=== PATIENT | male | born 1985 | race Caucasian/White ===

== ENCOUNTER 2021-09-24 18:17 | Emergency (ER) | payer OTHER, SELFPAY ==
[2021-09-24 18:19] VITALS: BP 138/93; PULSE 74; RESP 18; TEMP 36.2; O2SAT 100
--- NOTE | 2021-09-24 20:18 | ED.GENADULT ---
HPI - General Adult General Chief complaint: Wound/Laceration Stated complaint: lac Time Seen by Provider: 09/24/21 20:03 Source: patient Mode of arrival: ambulatory Limitations: no limitations History of Present Illness HPI narrative: Patient presents for evaluation of laceration to left wrist. He states he was working with a trailer when the gate of the trailer broke. He attempted to worm picker a piece of metal and in the process of doing that sustained the wound. He states pain is mild in severity, without descriptive quality. No loss of range of motion. He is right-hand dominant. Date of last tetanus unknown. He is diabetic but states blood sugars hae been running 90-130's. He is compliant with his metformin. He indicates bleeding is controlled. Related Data Allergies Allergy/AdvReac Type Severity Reaction Status Date / Time No Known Allergies Allergy Unknown Verified 09/24/21 20:40 Review of Systems Review of Systems: CONSTITUTIONAL: Denies fever, chills, or sweats. EYES: Denies visual changes, redness, or discharge. ENT: Denies rhinorrhea, congestion, sore throat, or otalgia. CARDIOVASCULAR: Denies chest pain, palpitations, or edema. RESPIRATORY: Denies cough or dyspnea. GASTROINTESTINAL: Denies abdominal pain, nausea, vomiting, or diarrhea. GENITOURINARY: Denies dysuria or hematuria. SKIN: Reports laceration to left wrist. Denies rash or itching. MUSCULOSKELETAL: Reports pain at site of left wrist laceration. Denies back pain or joint pain NEUROLOGIC: Denies headache, numbness, dizziness, or weakness. PSYCHIATRIC: Denies anxiety or depression. [facility] Past Medical History Medical History (Updated 09/24/21 @ 21:20 by ROMULO Martin, ) Diabetes Hypertension Testicular cancer Surgical History Surgical History History of orchiectomy Family History Family History Mother Pulmonary disease Father Pulmonary disease Social History Social History Smoking status: Never smoker Alcohol intake: current Alcohol use details: Occasional Substance use: current Substance use type: marijuana Living arrangements: with family Gender identity (if verbalized by the patient): Male Sexual Orientation (if Verbalized by the Patient): Straight or Heterosexual Spiritual care concerns: No Exam Narrative: GENERAL: Well-appearing, well-nourished, and in no acute distress. HEAD: Normocephalic, atraumatic. EYES: PERRLA and EOMI. ENT: Nares clear, no rhinorrhea or epistaxis. Mucous membranes moist. Oropharynx without tonsillar hypertrophy exudate or other lesions. Bilateral TMs pearly abdi nonbulging NECK: Supple. No adenopathy or masses. No carotid bruits or JVD CHEST: Clear to auscultation. No respiratory distress. No wheezes rales or rhonchi HEART: Regular rate and rhythm. No murmur heard. Normal peripheral pulses. ABDOMEN: Soft, nontender, nondistended, normal active bowel sounds. EXTREMITIES: Normal range of motion. No edema. SKIN: Approximately 3 cm linear laceration to the left wrist. This is covered in dry gauze and Kerlix which were removed for evaluation. There is small amount of sanguinous drainage noted on the dressing and a small amount of active bleeding from the laceration site . Skin is warm, dry, no rash. NEURO: No focal deficits. Alert and oriented x3. PSYCH: Normal mood and affect. Course Course Emergency Course: This is a 36-year-old male with history of testicular cancer, diabetes, hypertension that presented with a laceration to the left wrist. He was updated on his tetanus. Laceration was approximated with 5 sutures. I offered to check imaging, which patient declined. I think this is reasonable due to level clinical suspicion for retained foreign body. patient tolerated well. Advised on woun
[2021-09-24] MEDS: TETANUS,DIPHTHERIA,AC PERTUSSIS ADULT (0.5 ML) BOOSTRIX IM (21:15)
[2021-09-24] MEDS: NEOMYCIN/POLYMYXIN/BACITRACIN OINTMENT PACKET 1 PACKET TOPICAL (21:30)
[2021-09-24 21:37] VITALS: BP 162/94; PULSE 73; RESP 14; O2SAT 98
== END 2021-09-24 21:39 | disposition home or self-care (01) ==
PROVIDERS: Emergency Provider Nurse Practitioner; PCP Family Medicine
DX: S61.512A Laceration without foreign body of left wrist, initial encounter (principal); Z23 Encounter for immunization; E11.9 Type 2 diabetes mellitus without complications; I10 Essential (primary) hypertension; W26.8XXA Contact with other sharp object(s), not elsewhere classified, initial encounter
CPT/HCPCS: 12002; 90471; 90715; 99282; A9270

== ENCOUNTER 2022-11-06 17:57 | Emergency (ER) | payer OTHER, SELFPAY ==
[2022-11-06 18:06] VITALS: BP 156/118; PULSE 82; RESP 18; TEMP 37.5; O2SAT 100
--- NOTE | 2022-11-06 18:19 | ED.URI ---
HPI - URI/Sore Throat General Chief Complaint: Upper Respiratory Infection Stated Complaint: Sore Throat Time Seen by Provider: 11/06/22 18:19 Source: patient Mode of arrival: ambulatory Limitations: no limitations History of Present Illness HPI Narrative: 37-year-old male presents with complaint of nasal congestion, postnasal drainage, sore throat, fatigue for the last 2-3 days. Afebrile. Reports some sinus pressure. Is taking his daily allergy medications. States decreased appetite today. Otherwise feeling fine. States could be by allergies but 3/4 kids also had strep throat last week. Would like strep testing to rule out. All systems reviewed and negative except as noted above. Related Data Home Medications Medication Instructions Recorded Confirmed atorvastatin 10 mg tablet mg 11/06/22 bupropion HCl 300 mg 24 hr tablet, mg PO 11/06/22 extended release cetirizine 10 mg tablet mg 11/06/22 fluoxetine 20 mg tablet mg 11/06/22 fluticasone propionate 50 intranasal 11/06/22 mcg/actuation nasal spray,suspension lisinopril 20 mg tablet mg 11/06/22 metformin 1,000 mg tablet mg 11/06/22 methylphenidate HCl 36 mg mg PO 11/06/22 tablet,extended release 24 hr ([facility]) montelukast 10 mg tablet mg 11/06/22 pantoprazole 20 mg tablet,delayed mg PO 11/06/22 release trazodone 50 mg tablet mg 11/06/22 Allergies Allergy/AdvReac Type Severity Reaction Status Date / Time No Known Allergies Allergy Unknown Verified 11/06/22 18:04 Review of Systems Review of Systems: CONSTITUTIONAL: Denies fever, chills, or sweats. EYES: Denies visual changes, redness, or discharge. ENT: Reports rhinorrhea, congestion, sore throat. Denies otalgia. CARDIOVASCULAR: Denies chest pain, palpitations, or edema. RESPIRATORY: Denies cough or dyspnea. GASTROINTESTINAL: Denies abdominal pain, nausea, vomiting, or diarrhea. GENITOURINARY: Denies dysuria or hematuria. SKIN: Denies rash or itching. MUSCULOSKELETAL: Denies back pain, joint pain, or myalgia. NEUROLOGIC: Denies headache, numbness, or weakness. PSYCHIATRIC: Denies anxiety or depression. All other systems reviewed are negative, except as documented in HPI. PMFSH Past Medical History Medical History (Updated 11/06/22 @ 18:51 by Dayami Villanueva NP) Diabetes Hypertension Testicular cancer Surgical History Surgical History History of orchiectomy Family History Family History Mother Pulmonary disease Father Pulmonary disease Social History Social History Smoking status: Never smoker Alcohol intake: current Alcohol use details: Occasional Substance use: current Substance use type: marijuana Gender identity (if verbalized by the patient): Male Sexual Orientation (if Verbalized by the Patient): Straight or Heterosexual Spiritual care concerns: No Comments At time of signature, agree with nursing past medical, surgical, social and family history. There is no relevant family history pertinent to the presenting complaint. Exam Narrative: GENERAL: This is a well-nourished, well-developed patient, in no apparent distress. HEAD: normocephalic, atraumatic. EYES: PERRL. Sclera clear/white. Vision is grossly intact. EARS: External ears normal, auditory canals clear and without drainage, TMs normal without perforation. Hearing grossly intact. NOSE: External nose normal with clear nasal drainage. No erythema or swelling to nares. THROAT: Mucous membranes moist, Mild erythema with clear postnasal drainage. NECK: Neck supple, non-tender without lymphadenopathy, masses or thyromegaly. CARDIOVASCULAR: Regular rate and rhythm without murmurs, gallops, or rubs. RESPIRATORY: Clear to auscultation. Breath sounds equal bilaterally. No wheezes, rales, or rhonchi.
[2022-11-06 18:55] VITALS: BP 156/97
== END 2022-11-06 18:55 | disposition home or self-care (01) ==
PROVIDERS: Emergency Provider Nurse Practitioner Family; PCP Family Medicine
DX: J01.90 Acute sinusitis, unspecified (principal); Z20.822 Contact with and (suspected) exposure to COVID-19; F12.90 Cannabis use, unspecified, uncomplicated; E11.9 Type 2 diabetes mellitus without complications; I10 Essential (primary) hypertension; Z85.47 Personal history of malignant neoplasm of testis; Z79.84 Long term (current) use of oral hypoglycemic drugs; Z90.79 Acquired absence of other genital organ(s)
CPT/HCPCS: 87081; 87426; 87804; 87880; 99213; C9803; G0463